=== PATIENT | female | born 1970 | race Two or more races ===

== ENCOUNTER 2017-08-04 16:53 | Emergency (ER) | payer MEDICAID ==
[~2017-08-04] VITALS: Ht 162.6 cm; Wt 76.2 kg
[2017-08-04] MEDS ORDERED: cloNIDine HCL 0.1 MG TAB ONE (17:19)
[2017-08-04] MEDS ORDERED: cloNIDine HCL 0.1 MG TAB PO ONE ×2 (17:30)
[2017-08-04 20:04] VITALS: BP 137/84
[2017-08-04] MEDS ORDERED: methylPREDNISolone SOD SUCC 125 MG/2 ML VL ONE (20:44)
[2017-08-04] MEDS ORDERED: ALBUTEROL SULF 2.5 MG/0.5ML(0.5%) NEB SOLN NEB ONE (21:00)
[2017-08-04] MEDS ORDERED: IPRATROPIUM BROM 0.5 MG/2.5ML INH SOL NEB ONE (21:00)
[2017-08-04] MEDS ORDERED: methylPREDNISolone SOD SUCC 125 MG/2 ML VL IM ONE (21:00)
== END 2017-08-04 21:44 | disposition home or self-care (01) ==
LOC: ER 16:53
DX: J40 Bronchitis, not specified as acute or chronic (principal); F17.210 Nicotine dependence, cigarettes, uncomplicated
CPT/HCPCS: 71046; 94640; 96372; 99284; J2930

== ENCOUNTER 2019-08-09 14:03 | Emergency (ER) | payer MEDICAID ==
[~2019-08-09] VITALS: Ht 162.6 cm; Wt 74.4 kg
[2019-08-09] MEDS ORDERED: cloNIDine HCL 0.1 MG TAB PO ONE (15:00)
[2019-08-09 16:25] VITALS: BP 123/79
== END 2019-08-09 16:35 | disposition home or self-care (01) ==
LOC: ER 14:03
DX: S80.02XA Contusion of left knee, initial encounter (principal); S50.02XA Contusion of left elbow, initial encounter; E11.65 Type 2 diabetes mellitus with hyperglycemia; I16.0 Hypertensive urgency; F17.210 Nicotine dependence, cigarettes, uncomplicated; Z98.51 Tubal ligation status; I10 Essential (primary) hypertension; W18.39XA Other fall on same level, initial encounter; Y93.89 Activity, other specified; Y92.89 Other specified places as the place of occurrence of the external cause; Y99.8 Other external cause status
CPT/HCPCS: 73080; 73562; 82962

== ENCOUNTER 2019-08-17 18:58 | Emergency (ER) | payer MEDICAID ==
[~2019-08-17] VITALS: Ht 162.6 cm; Wt 77.1 kg
[2019-08-17] MEDS ORDERED: LABETALOL HCL 5 MG/ML 4ML SYRINGE IV ONE (19:45)
[2019-08-17 20:14] LABS: Hemoglobin 13.3 g/dL (12.2-16.2); Monocytes # (auto) 0.9 uL; Nucleated Red Blood Cells % 0.1 %
[2019-08-17 20:21] LABS: Basophils # (auto) 0.1 uL; Basophils % (auto) 0.7 % (0.0-2.0); Eosinophils # (auto) 0.4 uL; Eosinophils % (auto) 3.4 % (0.0-7.0); Hematocrit 38.2 % (36.0-46.0); Lymphocytes # (auto) 4.3 uL; Lymphocytes % (auto) 37.6 % (10.0-50.0); Mean Corpuscular Hemoglobin 30.8 pg (28.0-32.0); Mean Corpuscular Hgb Conc. 34.9 g/dL (32.0-36.0); Mean Corpuscular Volume 88.2 fL (80.0-100.0); Monocytes % (auto) 7.4 % (0.0-12.0); Neutrophils # (auto) 5.9 uL; Neutrophils % (auto) 50.9 % (37.0-80.0); Platelet Count (auto) 347 10^3/uL (140-450); Red Blood Cells 4.33 10^6/uL (4.0-5.20); Red Cell Distribution Width 13.8 % (11.8-14.3); White Blood Cell 11.6 10^3/uL (4.4-10.8)
[2019-08-17 20:26] LABS: Calcium 8.3 mg/dL (8.5-10.1); INR 0.94 (0.9-1.15); Partial Thromboplastin Time 23.2 sec (23.64-32.05); Potassium 3.2 mmol/L (3.5-5.1)
[2019-08-17 20:33] LABS: BUN/Creatinine Ratio 14.5; Bilirubin, Total 0.2 mg/dL (0.2-1.0); Total Protein 6.4 g/dL (6.4-8.2)
[2019-08-17] MEDS ORDERED: cloNIDine HCL 0.1 MG TAB PO ONE (21:00)
[2019-08-17] MEDS ORDERED: ASPirin-EC 81 mg tab PO ONE (21:00)
[2019-08-17] MEDS ORDERED: POTASSIUM CHL 20 Meq TABLET PO ONE (21:15)
[2019-08-17 21:36] VITALS: BP 190/102
[2019-08-17] MEDS ORDERED: InsuLIN REG 1unit/0.01ml Soln (100units/ml) SC ONE (21:45)
== END 2019-08-17 21:52 | disposition left against medical advice (07) ==
LOC: ER 19:05
DX: I10 Essential (primary) hypertension (principal); R79.89 Other specified abnormal findings of blood chemistry; E11.9 Type 2 diabetes mellitus without complications; E78.5 Hyperlipidemia, unspecified; M10.9 Gout, unspecified
CPT/HCPCS: 36415; 71045; 80053; 82962; 83735; 83880; 84443; 84484; 85025; 85610; 85730; 93005; 96374; 99284; J1815; J3490; 96372